=== PATIENT | female | born 1980 | race Native Hawaiian/Other Pacific Islander ===

== ENCOUNTER 2018-12-04 12:38 | Emergency (ER) | payer OTHER ==
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
[2018-12-04 12:54] VITALS: PULSE 82; RESP 18; TEMP 98.8; O2SAT 98
[2018-12-04 13:28] VITALS: BP 118/73
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
== END 2018-12-04 15:02 | disposition home or self-care (01) ==
LOC: ED 12:38
DX: S90.32XA Contusion of left foot, initial encounter (principal); V03.90XA Pedestrian on foot injured in collision with car, pick-up truck or van, unspecified whether traffic or nontraffic accident, initial encounter; Y93.01 Activity, walking, marching and hiking